=== PATIENT | male | born 1965 ===

== ENCOUNTER 2018-08-08 12:22 | Emergency (ER) | payer SELFPAY ==
[2018-08-08] MEDS ORDERED: SODIUM CHLORIDE 0.9% FLUSH 10 ML SOL IV PRN (12:35)
[2018-08-08 12:45] LABS: BASOPHILS % (AUTO) 1 % (0-3); EOSINOPHILS % (AUTO) 0 % (0-9); HEMATOCRIT 52 % (39-53); HEMOGLOBIN 17.2 gm/dl (13.5-17.7); MEAN CORPUSCULAR HEMOGLOBIN 28.4 pg (27.0-32.0); MEAN CORPUSCULAR HGB CONC 32.9 gm/dl (32.0-36.0); MEAN CORPUSCULAR VOLUME 86 fL (80-100); MONOCYTES % (AUTO) 8.1 % (0-12); NEUTROPHILS % (AUTO) 80.6 % (37-80)
[2018-08-08 12:50] LABS: INR 1.02 (0.86-1.12)
[2018-08-08 13:04] LABS: CALCIUM 8.8 mg/dl (8.5-10.1); CARBON DIOXIDE 25.1 mEq/L (21-32); CREATININE 0.73 mg/dl (0.80-1.30); POTASSIUM 4.4 mMol/L (3.5-5.1); TROP I 0.469 ng/ml (0.000-0.056)
[2018-08-08 13:21] VITALS: BP 112/77; PULSE 69; RESP 20; TEMP 98.1; O2SAT 93
[2018-08-08] MEDS ORDERED: TDAP VACCINE 0.5 ML SUS IM ONE ×2 (13:22→13:23)
[2018-08-08] MEDS ORDERED: FUROSEMIDE 20mg SOL IV ONE (13:46)
[2018-08-08] MEDS ORDERED: FUROSEMIDE 20mg SOL ONE (13:47)
== END 2018-08-08 14:00 | disposition short-term general hospital (02) | DRG 66 ==
LOC: ED 12:22
DX: I63.511 Cerebral infarction due to unspecified occlusion or stenosis of right middle cerebral artery (principal); R53.83 Other fatigue; R53.1 Weakness; R29.704 NIHSS score 4
CPT/HCPCS: 36415; 70450; 71045; 80048; 84484; 85025; 85610; 85730; 90471; 90715; 93005; 96374; 99291; J1940